=== PATIENT | male | born 1985 | race Caucasian/White ===

== ENCOUNTER 2019-05-19 14:32 | Emergency (ER) | payer MEDICAID, SELFPAY ==
[2019-05-19 14:46] VITALS: BP 128/91; PULSE 78; RESP 16; TEMP 36.7; O2SAT 99; BMI 30.1
--- NOTE | 2019-05-19 14:51 | XR_ITS ---
WS: [id number] PORTABLE CHEST HISTORY: cp COMPARISON: 12/08/2016 Lungs are clear and well expanded. No pleural effusion or pneumothorax. Cardiac size: Normal. Mediastinum/Aorta: Normal mediastinum. No osseous abnormality seen. XR/XR chest 1V portable [id number] IMPRESSION: Unremarkable portable chest.
--- NOTE | 2019-05-19 14:51 | ECG_ITS ---
Measurements Intervals [place] Rate: 75 P: 20 FL: 173 QRS: 34 QRSD: 89 T: 72 QT: 356 QTc: 399 SINUS RHYTHM No previous ECG available for comparison Electronically Signed On 05-19-2019 16:23:01 [employer] ASSEMBLER by Kolby Verma M.D. [email or web address]
[2019-05-19 15:19] LABS: Basophils % 0.5 %; Eosinophils # 0.1 10^3/uL (0.0-0.8); Eosinophils % 2.1 %; Hematocrit 43.4 % (42.0-52.0); Hemoglobin 14.7 g/dL (11.7-16.6); Lymphocytes # 2.2 10^3/uL (0.8-4.8); Lymphocytes % 33.2 %; Mean Corpuscular HGB Conc 33.9 g/dL (30.0-36.0); Mean Corpuscular Hemoglobin 28.4 pg (28.0-34.0); Mean Corpuscular Volume 83.9 fL (80-94); Mean Platelet Volume 9.4 fL (7.4-10.4); Monocytes # 0.8 10^3/uL (0.2-0.9); Monocytes % 11.5 %; Neutrophils # 3.5 10^3/uL (1.8-7.7); Neutrophils % 52.5 %; Nucleated Red Blood Cells % 0 %; Platelet Count 268 10^3/cmm (130-400); Red Blood Count 5.17 10^6/uL (4.1-5.3); Red Cell Distribution Width 11.8 % (12.1-15.1); White Blood Count 6.6 10^3/uL (4.0-10.0)
[2019-05-19 15:32] LABS: Albumin Level 4.7 g/dL (3.5-5.2); Alkaline Phosphatase 114 IU/L (40-130); Anion Gap 16.1 (5-19); Blood Urea Nitrogen 16 mg/dL (6-20); Calcium 9.5 mg/dL (8.5-10.5); Carbon Dioxide 25 mmol/L (22-29); Chloride 103 mmol/L (98-107); Creatinine Clr Calc Pharmacy 122.8524; Globulin 3.5 g/dL (1.3-4.6); Glomerular Filtration Rate 86.6 mL/min (90-130); Glucose 69 mg/dL (74-109); Potassium 4.1 mmol/L (3.5-5.1); Sodium 140 mmol/L (136-145); Total Bilirubin 0.3 mg/dL (0.15-1.2); Total Protein 8.2 g/dL (6.6-8.7)
[2019-05-19 15:35] LABS: Troponin(5th) Baseline 8 ng/mL (0-15)
[2019-05-19 15:45] LABS: Alanine Aminotransferase < 5 U/L (0-41); Aspartate Amino Transferase 5 U/L (0-40)
--- NOTE | 2019-05-19 16:51 | ECG_ITS ---
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 [email or web address]
[2019-05-19 18:03] VITALS: BP 133/98; PULSE 71; RESP 18; O2SAT 99
[2019-05-19 18:07] LABS: Troponin 5 2HR 7.76 ng/mL (0-15)
[2019-05-19 18:08] LABS: Troponin 5 2HR Delta -0.24 ABS# (0-10)
--- NOTE | 2019-05-19 18:09 | ED_ITS ---
Entered by Polly Serna, acting as scribe for Lelo Olsen Artis May 19, 2019 14:32 HPI - Chest Pain General: Chief Complaint: Chest Pain Stated Complaint: Chest pains Time Seen by Provider: 05/19/19 18:06 Source: patient Mode of arrival: ambulatory Limitations: no limitations History of Present Illness: HPI narrative: 34 yo Male presents to ED with complaint of chest pain. He describes the pain as stabbing in nature. Is located on his right upper sternal border. Is been intermittent in nature lasting only 2 to 3 seconds and then resolving for 30 seconds but that interval is becoming longer and longer as time goes on. The patient's not tried anything at home for this. He denies having anything similar in the past. He denies any associated symptoms such as shortness of breath, diaphoresis, nausea/vomiting, radiation of his pain or syncope/near syncope. MD complaint: chest pain Timing of current episode: episodic and still present Pain location: substernal Pain scale (0-10): 6 Quality: sharp Relieving factors: nothing Exacerbating factors: nothing Associated symptoms: Deny abdominal pain, diaphoresis, dyspnea, fever(s), nausea, palpitations, syncope or vomiting Review of Systems General: Reports: other (negative unless marked) Const: Denies: fever, chills, body aches, fatigue, malaise or diaphoresis Eyes: Denies: change in vision or blurry vision ENMT: Denies: throat pain, painful swallowing, hoarseness, ear pain, ear discharge, Change in hearing or nasal discharge Card: Reports: chest pain; Denies: palpitations, irregular heart rhythm, syncope, pre-syncope, shortness of breath on exertion or shortness of breath when lying down Resp: Denies: shortness of breath, productive cough, non-productive cough, wheezing, coughing up blood or chest congestion GI: Denies: abdominal pain, nausea, vomiting, vomiting blood, coffee grounds in vomit, diarrhea, constipation, cramping, blood in stool or black tarry stool : Denies: flank pain, difficulty urinating, painful urination, urinary frequency, urinary urgency, decreased urine ouput, urinary incontinence or blood in urine Musc: Denies: neck pain, back pain, extremity pain, extremity swelling, joint pain, joint swelling, joint warmth or joint stiffness Skin/Breast: Denies: rash, skin tenderness or yellow skin Neuro: Denies: headache, numbness in extremities, weakness in extremities, changes in sensation, lack of coordination, difficulty walking, dizziness, verti go or confusion Endo: Denies: excessive thirst, tired all the time, cold intolerance, excessive sweating, flushing or hot flashes Jamison/Lymph: Denies: easy bruising, easy bleeding, petechiae or enlarged lymph nodes All/Imm: Denies: hives, throat swelling, tongue swelling, facial swelling or acute wheezing PFSH ED PFSH: Statuses (acute, chronic, etc) shown below reflect problem list status as previously entered and may not be historically accurate Social History Smoking and tobacco status: former smoker Physical Exam Const: COMMON NORMALS: no apparent distress, oriented x3, no limitations, healthy appearing and well nourished EXAM LIMITATIONS: no altered mental status GENERAL APPEARANCE: cooperative, well kempt and well developed ORIENTATION/CONSCIOUSNESS: Yes awake HENMT: COMMON NORMALS: normocephalic, head/scalp atraumatic, hearing grossly normal bilaterally, external ears normal, EAC's normal, external nose normal and moist oral mucous membranes HEAD & SCALP: normal to inspection, normocephalic and atraumatic FACE & SINUS: normal facial exam and face symmetric NOSE: external nose normal and nares normal EXTERNAL EAR: Yes external ears normal EXTERNAL AUDITORY CANAL: EAC's normal MOUTH: oral and palatal mucosa normal and tongue normal Eye: COMMON NORMALS: PERRL, EOMs intact bilaterally, conjunctivae normal and no scleral icterus GENERAL EYE: normal appearance of both eyes and normal light reflex CONJUNCTIVA: Yes conjunctivae normal SCLERA: sclerae normal CORNEA: Yes corneas normal PUPIL: Yes PERRL DIRECT OPHTHALMOSCOPY: Yes normal light reflex Neck/C-Spine: COMMON NORMALS: full ROM, no lymphadenopathy, supple, no meningeal signs and no JVD GENERAL: Yes normal visual inspection and Yes trachea midline CERVICAL SPINE: Yes cervical ROM normal Chest: COMMONS NORMALS: inspection of chest normal and palpation of chest normal Resp: COMMON NORMALS: normal respiratory effort, no retractions, no use of accessory muscles and clear to auscultation bilaterally EFFORT & INSPECTION: Yes able to speak in complete sentences AUSCULTATION: clear to auscultation bilaterally Cardio: COMMON NORMALS: no JVD, regular rate, regular rhythm, S1 normal heart sound, S2 normal heart sound, no gallops, no clicks, no murmurs and no rub JUGULAR VENOUS DISTENTION: no JVD RATE: regular rate RHYTHM: regular rhythm HEART SOUNDS: S1 normal and S2 normal GI: COMMON NORMALS: soft to palpation, non-tender, no hepatosplenomegaly and no masses INSPECTION: Yes normal to inspection PALPATION: Yes soft and Yes no hepatosplenomegaly : COMMON NORMALS: Yes no CVA tenderness BLADDER/KIDNEY EXAM: Yes no CVA tenderness Back/Pelvis: COMMON NORMALS: no CVA tenderness, thoracic and lumbar spine normal to inspection, no thoracic nor lumbar tenderness and thoraco-lumbar ROM normal Extremity: COMMON NORMALS: normal to inspection, full ROM, normal capillary refill, no joint enlargement, no clubbing, cyanosis or edema and no calf tenderness Neuro: COMMON NORMALS: oriented x3, CN's II-XII intact bilaterally, moves all extremities, no focal motor deficits and no sensory deficits noted MENINGEAL SIGNS: Yes no meningeal signs Psych: COMMON NORMALS: mental status grossly normal, thought process normal, cooperative, affect normal, speech normal and activity/motor behavior normal APPEARANCE: Yes well kempt SPEECH: Yes normal speech THOUGHT PROCESS: normal thought process Skin: COMMON NORMALS: no rashes or lesions noted, skin turgor normal, no jaundice, no petechiae and no mottling GENERAL SKIN EXAM: no rashes or lesions noted and turgor normal Course Vital Signs: Vital signs: Vital Signs Temperature 98.1 F 05/19/19 14:46 Pulse Rate 71 05/19/19 18:03 Respiratory Rate 18 05/19/19 18:03 Blood Pressure 133/98 05/19/19 18:03 Pulse Oximetry 99 05/19/19 18:03 MDM - Chest Pain MDM Narrative: Medical decision making narrative: Arrival -Blair is a 34-year-old male who comes in with stabbing-like chest pain for the past 40 minutes. The pain is very short lasting only to 3 seconds with 32nd or more intervals. It is gradually getting better since his arrival. Differential is long including aortic dissection, pulmonary embolism, acute coronary syndrome among many others. The patient is PERC rule negative. I will go and proceed with evaluation for acute coronary syndrome. EKG is reviewed with Dr. Ivey. He agrees no acute coronary syndrome type findings and IVAN is present. Questionable CO depression in lead II. He believes this could possibly be pericarditis. Discharge -patient is PERC rule negative excluding PE and his chest x-ray is normal with normal pulses peripherally and no description of ripping tearing pain or migration which I believe rules out aortic dissection. He has had 2- troponins and an change in EKG is that are more likely benign early repolarization with nonspecific changes as determined by Dr. Seo. The patient's pain is resolved on its own without any treatment but but I will go ahead and give him a dose of Toradol to treat a possible costochondritis. I did a bedside ultrasound with a suspicion of possible pericarditis but a limited echo does not show any pericardial effusion. The patient agrees to follow-up with Dr. Sharma and return here if necessary. He understands that a heart problem can be life-threatening so if his symptoms change or worsen he will return. Lab Data: Labs: Lab Results 05/19/19 05/19/19 05/19/19 Range/Units 15:10 15:10 15:10 WBC 6.6 (4.0-10.0) 10^3/ uL RBC 5.17 (4.1-5.3) 10^6/u L Hgb 14.7 (11.7-16.6) g/dL Hct 43.4 (42.0-52.0) % MCV 83.9 (80-94) fL MCH 28.4 (28.0-34.0) pg MCHC 33.9 (30.0-36.0) g/dL RDW 11.8 L (12.1-15.1) % Plt Count 268 (130-400) 10^3/c mm MPV 9.4 (7.4-10.4) fL Neut % (Auto) 52.5 % Lymph % (Auto) 33.2 % [place] % (Auto) 11.5 % Eos % (Auto) 2.1 % Baso % (Auto) 0.5 % Neut # (Auto) 3.5 (1.8-7.7) 10^3/u L Lymph # (Auto) 2.2 (0.8-4.8) 10^3/u L [place] # (Auto) 0.8 (0.2-0.9) 10^3/u L Eos # (Auto) 0.1 (0.0-0.8) 10^3/u L Baso # (Auto) 0.0 (0.0-0.1) 10^3/u L Nucleated RBC % (a uto) 0 % Nucleated RBCs # 0.0 /100WBC Sodium 140 (136-145) mmol/L Potassium 4.1 (3.5-5.1) mmol/L Chloride 103 (98-107) mmol/L Carbon Dioxide 25 (22-29) mmol/L Anion Gap 16.1 (5-19) BUN 16 (6-20) mg/dL Creatinine 1.0 (0.7-1.2) mg/dL GFR Calculation 86.6 L (90-130) mL/min Glucose 69 L (74-109) mg/dL Calcium 9.5 (8.5-10.5) mg/dL Total Bilirubin 0.3 (0.15-1.2) mg/dL AST 5 (0-40) U/L ALT < 5 (0-41) U/L Alkaline Phosphata se 114 (40-130) IU/L Troponin T Baselin e 8 (0-15) ng/mL Troponin T 120 Min deb (0-15) ng/mL Delta Troponin T (0-10) ABS# Total Protein 8.2 (6.6-8.7) g/dL Albumin 4.7 (3.5-5.2) g/dL Globulin 3.5 (1.3-4.6) g/dL 05/19/19 Range/Units 17:32 WBC (4.0-10.0) 10^3/ uL RBC (4.1-5.3) 10^6/u L Hgb (11.7-16.6) g/dL Hct (42.0-52.0) % MCV (80-94) fL MCH (28.0-34.0) pg MCHC (30.0-36.0) g/dL RDW (12.1-15.1) % Plt Count (130-400) 10^3/c mm MPV (7.4-10.4) fL Neut % (Auto) % Lymph % (Auto) % [place] % (Auto) % Eos % (Auto) % Baso % (Auto) % Neut # (Auto) (1.8-7.7) 10^3/u L Lymph # (Auto) (0.8-4.8) 10^3/u L [place] # (Auto) (0.2-0.9) 10^3/u L Eos # (Auto) (0.0-0.8) 10^3/u L Baso # (Auto) (0.0-0.1) 10^3/u L Nucleated RBC % (a uto) % Nucleated RBCs # /100WBC Sodium (136-145) mmol/L Potassium (3.5-5.1) mmol/L Chloride (98-107) mmol/L Carbon Dioxide (22-29) mmol/L Anion Gap (5-19) BUN (6-20) mg/dL Creatinine (0.7-1.2) mg/dL GFR Calculation (90-130) mL/min Glucose (74-109) mg/dL Calcium (8.5-10.5) mg/dL Total Bilirubin (0.15-1.2) mg/dL AST (0-40) U/L ALT (0-41) U/L Alkaline Phosphata se (40-130) IU/L Troponin T Baselin e (0-15) ng/mL Troponin T 120 Min deb 7.76 (0-15) ng/mL Delta Troponin T -0.24 L (0-10) ABS# Total Protein (6.6-8.7) g/dL Albumin (3.5-5.2) g/dL Globulin (1.3-4.6) g/dL Imaging Data^: CXR: Radiologist's impression: [address] [address] XRay Report Signed Patient: Blair Be #: [id number] : 1985Acct#:[id number] Age/Sex: 34 / MADM Date: 05/19/19 Loc: ERRoom/Bed: Attending Dr: Ordering Provider/Ordering MD: Tania Case MD Date of Service: 05/19/19 Procedure(s): XR chest 1V portable [id number] Accession Number(s): [id number] Report Number: [id number] WS: [id number] PORTABLE CHEST HISTORY: cp COMPARISON: 12/08/2016 Lungs are clear and well expanded. No pleural effusion or pneumothorax. Cardiac size: Normal. Mediastinum/Aorta: Normal mediastinum. No osseous abnormality seen. XR/XR chest 1V portable [id number] IMPRESSION: Unremarkable portable chest. Dictated By:Kathleen Montoya DO Signed By:Kathleen Montoya DOSigned Date/Time:05/19/191599 DD/ 1600 EKG Data^: EKG 1: Attestation: I personally reviewed and interpreted this EKG as follows: EKG interpretation date: 05/19/19 EKG interpretation time: 14:56 Interpretation: Normal sinus rhythm at 75 beats a minute, benign early repolarization, possible CO depression in lead II. Nonspecific changes in aVL, normal intervals, reviewed and confirmed with Dr. Seo. EKG 2: Attestation: I personally reviewed and interpreted this EKG as follows: EKG interpretation date: 05/19/19 EKG interpretation time: 17:31 Interpretation: Normal sinus rhythm at 65 beats a minute, benign early repolarization, possible CO depression in lead II, normal intervals, nonspecific change in aVL. Unchanged from previous. Reviewed and confirm with Dr. Ivey. EKG 3: Attestation: I personally reviewed and interpreted this EKG as follows: EKG interpretation date: 05/19/19 EKG interpretation time: 18:26 Interpretation: Normal sinus rhythm at 61 beats a minute, CO depression in lead II, benign early repolarization, nonspecific changes in aVL, unchanged from previous. Reviewed and agreed upon with Dr. Courtney. Discharge Plan Discharge Patient Disposition: Home, Self-Care Clinical Impression: Atypical chest pain Condition: Stable Prescriptions: New indomethacin 25 mg capsule 25 mg PO TID Qty: 30 RF: 0 Discharge Orders: Discharge Order (Routine); Ordered 05/19/19 Ordered By: Lelo Olsen Referrals: Ruddy Sharma MD [Primary Care Provider] - 1-3 days Discharge Diet: Advance as tolerated Discharge Activity: Resume usual activity Patient Instructions: Chest Pain (ED) Activity Restrictions/Additional Instructions: Please return to the ER immediately for any of the signs or symptoms listed on your discharge instruction sheets, worsening/changing of your symptoms, you are not getting better as quickly as expected, or for ANY other cause or concerns. Discharge Date/Time: 05/19/19 20:31 Coding Level of Care Code ED Division Road Supervisor for Chg Fwd Exam Problem Focused The documentation recorded by the Daphne hernandez Carmen, accurately reflects the service I personally performed and the decisions made by me, Lelo Olsen May 19, 2019 14:32
--- NOTE | 2019-05-19 19:11 | USCV_ITS ---
Blair Be Age: 34 Gender: M : 1985 Exam Date: 05/19/2019 19:13 Ordering Phys: Lelo Olsen DO Technologist: Francine Dimas [place] [facility] [place]: PERICARDIAL EFFUSION BP: 130 / 85 HR: 66 Rhythm: Sinus Technical Quality: Adequate MEASUREMENTS (Male / Female) Normal Values 2D ECHO LV Diastolic Diameter PLAX 4.1 cm 4.2 - 5.9 / 3.9 - 5.3 cm LV Systolic Diameter PLAX 2.9 cm LV Chamber Size 3.5 cm IVS Diastolic Thickness 1.5 cm 0.6 - 1.0 / 0.6 - 0.9 cm IVS Systolic Thickness 1.6 cm LVPW Diastolic Thickness 1.7 cm 0.6 - 1.0 / 0.6 - 0.9 cm LVPW Systolic Thickness 2.0 cm RV Chamber Size 2.5 cm LVOT Diameter 2.1 cm LV Ejection Fraction 2D Teich 58.4 % LV Ejection Fraction MOD 2C 60.9 % LV Ejection Fraction 2C AL 61.6 % LA Diameter 4.5 cm LA Width 3.1 cm LA Height 4.6 cm RA Width 4.0 cm RA Height 3.2 cm Aorta at Sinotubular Diameter 3.2 cm M-MODE LV Diastolic Diameter MM 4.7 cm 4.2 - 5.9 / 3.9 - 5.3 cm LV Systolic Diameter MM 2.6 cm LV Ejection Fraction MM Teich 74.9 % IVS Diastolic Thickness MM 0.9 cm 0.6 - 1.0 / 0.6 - 0.9 cm IVS Systolic Thickness MM 1.2 cm LVPW Diastolic Thickness MM 1.2 cm 0.6 - 1.0 / 0.6 - 0.9 cm LVPW Systolic Thickness MM 1.7 cm Aortic Annulus Diameter 3.2 cm LA Ao Ratio MM 1.4 MV E Point Septal Separation 0.5 cm FINDINGS Left Ventricle Left ventricular ejection fraction is estimated at __ %. Normal left ventricular cavity size. Normal left ventricular systolic function. No regional wall motion abnormalities. Left ventricular ejection fraction is estimated at 55 %. Right Ventricle Right Atrium Left Atrium Mitral Valve Aortic Valve Tricuspid Valve Pulmonic Valve Pericardium Aorta CONCLUSIONS Please note that this is a limited study with no Doppler data was performed therefore cannot assess regurgitation of the valves. 1-Normal left ventricular cavity size. Normal left ventricular systolic function. No regional wall motion abnormalities. Left ventricular ejection fraction is estimated at 55 %. #2 No significant valvular stenosis noted. Cannot assess balloon alert regurgitation due to insufficient Doppler data #3 No pericardial effusion noted #4 right atrial pressure is around 5 mm of mercury. #5 There are no prior echocardiogram studies to compare. Ghada Courtney MD (Electronically Signed) Final Date: 19 May 2019 21:30 S
[2019-05-19] MEDS: ketorolac 60 mg/2 mL INJ IM (20:01)
[2019-05-19] MEDS: aspirin 325 mg Tablet PO (20:01)
== END 2019-05-19 20:31 | disposition home or self-care (01) ==
PROVIDERS: Emergency Medicine; Emergency Provider Emergency Medicine; Family Provider Family Medicine; PCP Family Medicine
DX: R07.89 Other chest pain (principal); Z87.891 Personal history of nicotine dependence
CPT/HCPCS: 36415; 71045; 80053; 84484; 85025; 93005; 93308; 96372; 99282; 99284; J1885

== ENCOUNTER 2020-05-22 03:34 | Emergency (ER) | payer OTHER, SELFPAY ==
[2020-05-22 03:35] VITALS: BP 125/86; PULSE 78; RESP 16; TEMP 36.8; O2SAT 99
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
[2020-05-22 04:32] LABS: Hepatitis B Surface AB 703.5 (0-8.5); Hepatitis C Virus Antibody Non-Reactive (Nonreactive)
[2020-05-22 08:18] LABS: Hepatitis B Surface Antigen Non-Reactive (Nonreactive)
[2020-05-22 08:26] LABS: HIV 1 & 2 Antibody Non-Reactive (Non-Reactiv); HIV 1 & 2 Antigen Non-Reactive (Non-Reactiv)
== END 2020-05-22 05:16 | disposition home or self-care (01) ==
PROVIDERS: Emergency Provider Emergency Medicine; PCP Family Medicine
DX: Z77.21 Contact with and (suspected) exposure to potentially hazardous body fluids (principal); Y99.0 Civilian activity done for income or pay
CPT/HCPCS: 86706; 86803; 87340; 87806; 99281

== ENCOUNTER → 2020-07-21 07:56 | Outpatient (BNVA) | payer OTHER, SELFPAY | PROVIDERS: PCP Family Medicine; Visit Provider Psychiatry & Neurology Neurology | DX: F43.21 Adjustment disorder with depressed mood (principal); Z63.0 Problems in relationship with spouse or partner | CPT/HCPCS: 90791 ==

== ENCOUNTER → 2020-08-01 13:38 | Outpatient (BNVA) | payer OTHER, SELFPAY | PROVIDERS: PCP Family Medicine; Visit Provider Psychiatry & Neurology Psychiatry | DX: F33.1 Major depressive disorder, recurrent, moderate (principal); F41.1 Generalized anxiety disorder; Z63.0 Problems in relationship with spouse or partner | CPT/HCPCS: 99204 ==

== ENCOUNTER → 2020-08-02 10:39 | Outpatient (BNVA) | payer OTHER, SELFPAY | PROVIDERS: PCP Family Medicine; Visit Provider Social Worker Clinical | DX: F41.1 Generalized anxiety disorder (principal); F33.1 Major depressive disorder, recurrent, moderate | CPT/HCPCS: 90834 ==

== ENCOUNTER → 2020-08-15 10:55 | Outpatient (BNVA) | payer OTHER, SELFPAY | PROVIDERS: PCP Family Medicine; Visit Provider Social Worker Clinical | DX: F33.1 Major depressive disorder, recurrent, moderate (principal); F41.1 Generalized anxiety disorder | CPT/HCPCS: 90834 ==

== ENCOUNTER → 2020-08-30 08:50 | Outpatient (BNVA) | payer OTHER, MEDICAID, SELFPAY | PROVIDERS: PCP Family Medicine; Visit Provider Social Worker Clinical | DX: F41.1 Generalized anxiety disorder (principal); F33.1 Major depressive disorder, recurrent, moderate | CPT/HCPCS: 90834 ==

== ENCOUNTER → 2020-08-31 10:25 | Outpatient (BNVA) | payer OTHER, MEDICAID, SELFPAY | PROVIDERS: PCP Family Medicine; Visit Provider Psychiatry & Neurology Psychiatry | DX: F41.1 Generalized anxiety disorder (principal); F33.1 Major depressive disorder, recurrent, moderate; Z63.0 Problems in relationship with spouse or partner | CPT/HCPCS: 99213 ==

== ENCOUNTER → 2021-06-07 13:56 | Outpatient (BNVA) | payer OTHER, SELFPAY | PROVIDERS: PCP Family Medicine; Visit Provider Nurse Practitioner Family | DX: Z20.822 Contact with and (suspected) exposure to COVID-19 (principal); J06.9 Acute upper respiratory infection, unspecified; Z71.89 Other specified counseling | CPT/HCPCS: 87635 ==

== ENCOUNTER 2021-08-14 10:41 | Outpatient (CLI) | payer MEDICAID, SELFPAY ==
--- NOTE | 2021-08-14 10:51 | XR_ITS ---
WS: [id number] Right shoulder, 2 views, 08/14/2021 Clinical Data: R shoulder pain Comparison: None. Findings: No fractures or dislocations are seen. The AC joint is normal. The adjacent right clavicle, right sca pula and ribs are normal. The soft tissues are unremarkable. XR/XR shoulder RT min 2V* [id number] Impression: Negative right shoulder.
== END 2021-08-14 10:42 | disposition home or self-care (01) ==
LOC: RAD 10:45
PROVIDERS: PCP Nurse Practitioner Family; Visit Provider Nurse Practitioner Family
DX: M25.511 Pain in right shoulder (principal)
CPT/HCPCS: 73030

== ENCOUNTER → 2021-08-16 09:47 | Outpatient (BNVA) | payer MEDICAID, SELFPAY | PROVIDERS: PCP Nurse Practitioner Family; Visit Provider Psychiatry & Neurology Psychiatry | DX: F41.1 Generalized anxiety disorder (principal); F33.1 Major depressive disorder, recurrent, moderate; Z63.0 Problems in relationship with spouse or partner | CPT/HCPCS: 99214 ==

== ENCOUNTER 2021-11-23 12:00 | Outpatient (CLI) | payer MEDICAID, SELFPAY | END 2021-11-23 12:01 | disposition home or self-care (01) | LOC: SLEEP 11-27 07:47 | PROVIDERS: Visit Provider Nurse Practitioner Family | DX: G47.30 Sleep apnea, unspecified (principal) | CPT/HCPCS: G0399 ==

== ENCOUNTER 2023-06-06 12:00 | Outpatient (CLI) | payer OTHER, SELFPAY ==
--- NOTE | 2023-06-06 12:15 | USCV_ITS ---
Blair Be Age: 38 Gender: M : 1985 Exam Date: 06/06/2023 12:22 Ordering Phys: Larry Narvaez MD Technologist: Toya Doan Exam Location: [facility] [place] Indication: congenital fiber type disproportion myopathy BP: 108 / 78 HR: 0 Rhythm: Sinus Technical Quality: Good MEASUREMENTS (Male / Female) Normal Values 2D ECHO LV Diastolic Diameter PLAX 4.0 cm 4.2 - 5.9 / 3.9 - 5.3 cm IVS Diastolic Thickness 1.2 cm 0.6 - 1.0 / 0.6 - 0.9 cm IVS Systolic Thickness 1.4 cm LVPW Diastolic Thickness 1.1 cm 0.6 - 1.0 / 0.6 - 0.9 cm LVPW Systolic Thickness 1.9 cm LVOT Diameter 2.0 cm LV Ejection Fraction 2D Teich 77.2 % LV Ejection Fraction MOD 2C 53.2 % Aorta at Sinotubular Diameter 2.7 cm IVC Diameter 1.1 cm DOPPLER AV Peak Velocity 151.0 cm/s LVOT Peak Velocity 150.0 cm/s AV Area Cont Eq vti 3.3 cm squared AV Area Cont Eq pk 3.2 cm squared MV Area PHT 2.6 cm squared TV Peak Velocity 109.0 cm/s TR Peak Velocity 124.5 cm/s TR Peak Gradient 6.2 mmHg Right Atrial Pressure 3.0 mmHg Pulmonary Artery Systolic Pressu 9.2 mmHg FINDINGS Left Ventricle Left ventricle is normal in size. LV systolic function is normal with EF of 55 to 60%. No regional wall motion abnormalities are seen. Right Ventricle Normal in size and function Right Atrium Normal in size Left Atrium Normal in size Mitral Valve Structurally normal mitral valve. Mild mitral regurgitation Aortic Valve Structurally normal aortic valve. Tricuspid Valve Trace tricuspid regurgitation. Pulmonary artery systolic pressure is normal. Pulmonic Valve Trace pulmonic regurgitation Pericardium Normal Aorta Normal in size IVC Appears to be normal CONCLUSIONS LV systolic function is normal with EF of 55 to 60%. Mild mitral regurgitation. Trace tricuspid regurgitation Trace pulmonic regurgitation Accuate comparison with prior echocardiogram not possible because prior study was only a limited echocardiogram Godwin Hayden MD (Electronically Signed) Final Date: 15 June 2023 11:43 S
== END 2023-06-06 12:01 | disposition home or self-care (01) ==
LOC: RAD 12:02
PROVIDERS: Visit Provider Family Medicine
DX: G71.29 Other congenital myopathy (principal); I34.0 Nonrheumatic mitral (valve) insufficiency
CPT/HCPCS: 93306